=== PATIENT | female | born 2000 | race Hispanic/Latino ===

== ENCOUNTER 2023-12-16 15:14 | Observation (INO) | payer BC ==
[~2023-12-16] VITALS: Ht 162.6 cm; Wt 56.2 kg
[2023-12-16 15:56] LABS: BILIRUBIN,URINE NEGATIVE (NEGATIVE); COLOR,URINE LIGHT-YELLOW (YELLOW); GLUCOSE, URINE (UA) NEGATIVE (NEGATIVE); KETONES,URINE NEGATIVE (NEGATIVE); LEUKOCYTE ESTERASE ,URINE NEGATIVE Leu/uL (NEGATIVE); NITRATE,URINE NEGATIVE (NEGATIVE); OCCULT BLOOD,URINE NEGATIVE (NEGATIVE); PROTEIN,URINE NEGATIVE (NEGATIVE); UROBILINOGEN,URINE 0.2 mg/dL (0.2-1.0)
[2023-12-16 15:58] LABS: ADD UA MICROSCOPIC YES; APPEARANCE,URINE HAZY (CLEAR)
--- NOTE | 2023-12-16 15:59 | ERN ---
General Chief Complaint: Abdominal Pain Stated Complaint: ABD PAIN Time Seen by MD: 15:19 Time Seen by Midlevel: 15:19 Source: patient History of Present Illness Initial Comments 23-year-old female presents to the ED for evaluation of midepigastric abdominal pain onset 2 days ago. Patient reports nausea, but denies any vomiting, diarrhea or any other associated symptoms. Allergies: Coded Allergies: Penicillins (Unverified Allergy, Unknown, 12/16/23) Home Meds Active Scripts Ferrous Sulfate (Feosol) 325 Mg (65 Mg Iron) Tablet, 1 TAB PO DAILY for 30 Days, #30 TAB 1 Refill Prov:SHARAD LAND MD 12/17/23 Past Medical History Past Medical History: Anemia, Depression Past Surgical History: None Female( History) LMP: Dec 02, 2023 : 0 ROS Dictation Constitutional: Negative for fever,chills, and weight loss Eyes: Negative for injury, pain,redness, and discharge ENT: Negative for injury,pain or swelling Cardiovascular: Negative for chest pain, palpitations, and edema Respiratory: Negative for shortness of breath, cough, and wheezing, Abdomen/GI: Positive for abdominal pain, nausea negative for vomiting, diarrhea, and constipation Back: Negative for injury and pain : Negative for injury, bleeding and discharge MS/Extremity: Negative for injury and deformity Skin: Negative for rash, and discoloration Neuro: Negative for headache, weakness, numbness, tingling, and seizure Psych: Negative for suicide ideation, homicidal ideation, and hallucinations Physical Exam Physical Exam Dictation General: awake, alert, NAD Head/Face: Normocephalic, atraumatic Eyes: PERRL, EOMI, vision at baseline ENT: oral cavity clear, TMs clear, no signs of infection Neck: Trachea midline, supple, no nuchal rigidity Cardiovascular: RRR, normal S1/S2, No MRGs, no JVD Respiratory: CTAB, no respiratory distress, No rales or wheezes Abdomen: Soft, moderate midepigastric abdominal tenderness, non-distended, normal bowel sounds, no guarding or rebound. Skin: Warm, dry, normal turgor, no rash MS/Extremity: Pulses equal, no cyanosis, neurovascular intact, FROM Neuro: COAx4, GCS 15, strength 5/5, CN 2-12 intact, normal cerebellar exam, normal gait, Psych: Normal behavior, mood, and affect normal Results Laboratory and Microbiology Lab and Micro Result Laboratory Tests Test 12/16/23 15:50 12/16/23 15:52 Urine Color LIGHT-YELLOW (YELLOW) Urine Appearance HAZY (CLEAR) Urine pH 8.0 (5.0-8.0) Urine Specific [place] 1.014 (1.001-1.031) Urine Protein NEGATIVE mg/dL (NEGATIVE) Urine Glucose (UA) NEGATIVE mg/dL (NEGATIVE) Urine Ketones NEGATIVE mg/dL (NEGATIVE) Urine Occult Blood NEGATIVE (NEGATIVE) Urine Nitrate NEGATIVE (NEGATIVE) Urine Bilirubin NEGATIVE mg/dL (NEGATIVE) Urine Urobilinogen 0.2 mg/dL (0.2-1.0) Urine Leukocyte Esterase NEGATIVE Aylin/uL Urine RBC 0-1 /HPF (0-1) Urine WBC 0-1 /HPF (0-1) Urine Squamous Epithelial Cells MANY /HPF (0-2) Urine Bacteria FEW /HPF (None Seen) White Blood Count 6.3 K/uL (4.8-10.8) Red Blood Count 4.57 MIL/uL (4.00-5.50) Hemoglobin 9.1 g/dL (12.0-16.0) L Hematocrit 29.7 % (36-48) L Mean Corpuscular Volume 65.0 fL (80-100) L Mean Corpuscular Hemoglobin 19.9 pg (27.0-33.0) L Mean Corpuscular Hemoglobin Concent 30.6 g/dL (32.0-36.0) L Red Cell Distribution Width 16.8 % (11.0-15.5) H Platelet Count 403 K/uL (130-400) H Mean Platelet Volume 9.6 fL (7.5-10.5) Immature Granulocyte % (Auto) 0.3 % (0-1) Neutrophils (%) (Auto) 63.2 % (40.0-77.0) Lymphocytes (%) (Auto) 28.7 % (21.0-51.0) Monocytes (%) (Auto) 6.7 % (3.0-13.0) Eosinophils (%) (Auto) 0.6 % (0.0-8.0) Basophils (%) (Auto) 0.5 % (0.0-5.0) Neutrophils # (Auto) 4.0 K/uL (1.8-7.7) Lymphocytes # (Auto) 1.8 K/uL (1.0-4.8) Monocytes # (Auto) 0.4 K/uL (0.1-1.0) Eosinophils # (Auto) 0.04 K/uL (0.00-0.70) Basophils # (Auto) 0.03 K/uL (0.00-0.20) Absolute Immature Granulocyte (auto 0.02 K/uL (0-1) Nucleated Red Blood Cells 0.0 % (0.0-0.19) Red Blood Cell Morphology See comments Sodium Level 139 mmol/L (136-145) Potassium Level 3.7 mmol/L (3.5-5.1) Chloride Level 102 mmol/L (101-111) Carbon Dioxide Level 29 mmol/L (21-32) Blood Urea Nitrogen 11 mg/dL (7-18) Creatinine 0.6 mg/dL (0.5-1.0) Glomerular Filtration Rate Calc 131 mL/min (>90) Random Glucose 93 mg/dL (70-105) Total Calcium 9.7 mg/dL (8.5-10.1) Total Bilirubin 0.4 mg/dL (0.2-1.0) Direct Bilirubin 0.1 mg/dL (0.0-0.3) Aspartate Amino Transf (AST/SGOT) 13 U/L (10-37) Alanine Aminotransferase (ALT/SGPT) 19 U/L (12-78) Alkaline Phosphatase 79 U/L (50-136) Total Protein 7.9 g/dL (6.0-8.3) Albumin 4.0 g/dL (3.5-5.0) Lipase 46 U/L (16-77) Serum Test, Qualitative NEGATIVE (NEGATIVE) Labs Reviewed?: Yes MDM MDM: Differential diagnosis: Pancreatitis, gastritis, gastroenteritis Rationale: Tests considered and ordered secondary to shared decision making include: Previous outside records reviewed: Old ER visits. Risk of complication and/or morbidity or mortality of patient management: None Medications-Per medication reconciliation Need for hospitalization: Patient does meet criteria for hospitalization. Need for emergency major/minor surgery: No There are no social concerns with this patient. Prescription drug management Prescriptions will include symptomatic care Patient's prior external medical records from other ER visits were reviewed by me as indicated. Prior testing and results from previous visits were reviewed. Prior tests were taken into account with medical decision making and resource utilization, independent historian/historians were used to obtain complete medical history. I independently interpreted the test that were performed, results were reviewed by me and considered findings on radiology if ordered. Medical management and examination interpretation discussions were had by me with other qualified healthcare professionals as indicated for the patient's care. ED Course Orders Procedure Category Date Status Time Cbc With Differential LAB 12/16/23 Complete 15:29 Basic Metabolic Panel LAB 12/16/23 Complete 15:29 Hepatic Function Panel LAB 12/16/23 Complete 15:29 Lipase LAB 12/16/23 Complete 15:29 Urinalysis Profile LAB 12/16/23 Complete 15:29 Testing, LAB 12/16/23 Complete Serum Hcg 15:29 Ondansetron Odt 4mg PHA 12/16/23 Complete Tab (Zofran 4mg Odt) 15:30 Ondansetron 4mg Inj PHA 12/16/23 Complete (Zofran 4mg Inj) 17:30 Famotidine 20mg Vial PHA 12/16/23 Complete (Pepcid 20mg Vial) 17:30 Lidocaine Hcl 2% PHA 12/16/23 Complete Viscous (Lidocaine Hcl 17:30 Mag/Alum/Simeth 30ml PHA 12/16/23 Complete (Maalox Plus 30ml) 17:30 Ondansetron Odt 4mg PHA 12/16/23 Complete Tab (Zofran 4mg Odt) 18:00 Famotidine 20mg Tab PHA 12/16/23 Complete (Pepcid 20mg Tab) 18:00 Morphine 2mg Syg PHA 12/16/23 Complete (Morphine 2mg Syg) 19:00 Ct Abdomen/Pelvis CT 12/16/23 Resulted W/Contrast 18:38 Iohexol (Omnipaque) PHA 12/16/23 Complete 18:46 Ketorolac PHA 12/16/23 Complete Tromethamine 15mg/Ml 20:00 0.9%Nacl 1000ml (Ns PHA 12/16/23 Complete 1000ml) 20:00 General Surgery CONPHYSVC 12/16/23 Transmitted Consult 20:34 Edm Admit Bridge Order ADM 12/16/23 Transmitted 21:00 Hydromorphone 0.5mg PHA 12/16/23 Complete Syg (Dilaudid 0.5mg 22:30 Vital Signs Date Time Temp Pulse Resp B/P (MAP) Pulse Ox O2 Delivery O2 Flow Rate FiO2 12/16/23 20:30 98.2 91 18 115/81 98 Room Air* 0 21 12/16/23 15:42 98.4 104 18 116/68 100 Room Air* 0 21 12/16/23 15:18 98.4 104 18 116/[address] [facility] [address] [place] [id number] IMAGING REPORT Signed PATIENT: GUADALUPE VARELA MR#: [id number] : 2000 SEX: F AGE: 23 LOCATION: [facility] ORDER 38 STATUS: REG ER REPORT#: [id number] SERVICE 37 REASON: mid epigastric abd pain ORDERING PHYSICIAN: ALPA VELAZCO PROCEDURE: ABD PEL W - CT ABDOMEN/PELVIS W/CONTRAST CT ABDOMEN/PELVIS W/CONTRAST HISTORY: Pain COMPARISON: None TECHNIQUE: Multiple sequential axial images of the abdomen and pelvis were obtained from the dome of the diaphragm through symphysis pubis. Patient was not given contrast through intravenous route. Oral contrast was not given. FINDINGS: No pleural effusion is seen bilaterally. There is no evidence of parenchymal disease or pulmonary nodule of the visualized lower lungs. Degenerative changes of the thoracolumbar spine are present. The heart is not enlarged. Liver measures 16 cm. Gastric distention is seen. Mild small bowel dilatation is seen may be related to ileus with early bowel obstruction not excluded. The liver, spleen, adrenal glands and pancreas are unremarkable. There is no evidence of hydronephrosis bilaterally. No evidence of renal stone is seen. Fecal material is seen in the colon. There are normal size retroperitoneal and mesenteric lymph nodes. No ascites is seen. Appendix is not well seen limiting evaluation. Clinical correlation is recommended. There are bilateral ovarian follicles versus cysts. Pelvic sidewalls are symmetric bilaterally. Bladder is well distended without wall thickening. IMPRESSION: 1. Gastric distention is seen. Mild small bowel dilatation is seen may be related to ileus with early bowel obstruction not excluded. Large amount of fecal material is seen in the colon. CT was performed with one or more following dose reduction techniques: automated exposure control, adjustment of the mA and kv according to patient's size, or use of a iterative reconstruction technique. DICTATED BY: OVIDIO VELASQUEZ MD DATE: 12/16/231913 ELECTRONICALLY SIGNED BY: OVIDIO VELASQUEZ MD DATE: 12/16/231917 DX & DISP Disposition: Inpatient Departure Impression: Primary Impression: Chronic anemia Additional Impression: Ileus Condition: Stable Scripts Ferrous Sulfate (Feosol) 325 Mg (65 Mg Iron) Tablet 1 TAB PO DAILY for 30 Days, #30 TAB 1 Refill Prov: SHARAD LAND MD 12/17/23 Time of Disposition: 18:06 I have reviewed, & agreed with my scribe's, documentation. (Entered by Patricio Shah, acting as a scribe for FAIZAN Velazco) I have reviewed the case, and I agree with, Diagnosis and Plan I performed the substantive portion of the visit. I have reviewed and personally made and approve the management plan that is documented in the note by myself or the YOUSIF. I acknowledge for responsibility for the patient's management plan. I personally scribed for ALPA VELAZCO ([email or web address]) on 12/16/23 at 15:59. Electronically submitted by Patricio Shah ([email or web address]). ALPA VELAZCO Dec 16, 2023 15:59
[2023-12-16] MEDS: ondanSETRON ODT 4MG TAB SL ONE ×2 (16:02→18:05)
[2023-12-16 16:15] LABS: BACTERIA,URINE FEW /HPF (None Seen); MUCUS,URINE RARE LPF (None Seen); RBC,URINE 0-1 /HPF (0-1); SQUAMOUS EPITHELIAL CELL,UR MANY /HPF (0-2); WBC,URINE 0-1 /HPF (0-1)
[2023-12-16 16:19] LABS: BASOPHILS # (AUTO) 0.03 K/uL (0.00-0.20); BASOPHILS % (AUTO) 0.5 % (0.0-5.0); EOSINOPHILS # (AUTO) 0.04 K/uL (0.00-0.70); EOSINOPHILS % (AUTO) 0.6 % (0.0-8.0); HEMATOCRIT 29.7 % (36-48); IMMATURE GRANULOCYTE ABSOLUTE 0.02 K/uL (0-1); LYMPHOCYTES # (AUTO) 1.8 K/uL (1.0-4.8); LYMPHOCYTES % (AUTO) 28.7 % (21.0-51.0); MEAN CORPUSCULAR HEMOGLOBIN 19.9 pg (27.0-33.0); MEAN CORPUSCULAR HGB CONC 30.6 g/dL (32.0-36.0); MONOCYTES # (AUTO) 0.4 K/uL (0.1-1.0); MONOCYTES % (AUTO) 6.7 % (3.0-13.0); NEUTROPHILS % (AUTO) 63.2 % (40.0-77.0); PLATELET COUNT (AUTO) 403 K/uL (130-400); RED BLOOD CELL COUNT(AUTO) 4.57 MIL/uL (4.00-5.50); RED CELL DISTRIBUTION WIDTH 16.8 % (11.0-15.5); WHITE BLOOD COUNT (AUTO) 6.3 K/uL (4.8-10.8)
[2023-12-16 16:34] LABS: CREATININE 0.6 mg/dL (0.5-1.0); POTASSIUM 3.7 mmol/L (3.5-5.1)
[2023-12-16 16:39] LABS: BILIRUBIN,DIRECT 0.1 mg/dL (0.0-0.3); BILIRUBIN,TOTAL 0.4 mg/dL (0.2-1.0); TOTAL PROTEIN, SERUM 7.9 g/dL (6.0-8.3)
[2023-12-16] MEDS ORDERED: ondanSETRON 4MG INJ IVP ONE (17:30)
[2023-12-16] MEDS ORDERED: FAMOTIDINE 20MG VIAL IV ONE (17:30)
[2023-12-16] MEDS: FAMOTIDINE 20MG TAB PO ONE (18:05)
[2023-12-16] MEDS: MAG/ALUM/SIMETH 30 ML UDCUP PO ONE (18:05)
[2023-12-16] MEDS: LIDOCAINE HCL 2% VISCOUS 15 ML UDCUP PO ONE (18:05)
[2023-12-16] MEDS: morPHINE 2 MG SYG IVP ONE (18:42)
[2023-12-16] MEDS ORDERED: IOHEXOL-350 75 ML VIAL IV ONE (18:46)
--- NOTE | 2023-12-16 19:18 | HMCIMG ---
CT ABDOMEN/PELVIS W/CONTRAST HISTORY: Pain COMPARISON: None TECHNIQUE: Multiple sequential axial images of the abdomen and pelvis were obtained from the dome of the diaphragm through symphysis pubis. Patient was not given contrast through intravenous route. Oral contrast was not given. FINDINGS: No pleural effusion is seen bilaterally. There is no evidence of parenchymal disease or pulmonary nodule of the visualized lower lungs. Degenerative changes of the thoracolumbar spine are present. The heart is not enlarged. Liver measures 16 cm. Gastric distention is seen. Mild small bowel dilatation is seen may be related to ileus with early bowel obstruction not excluded. The liver, spleen, adrenal glands and pancreas are unremarkable. There is no evidence of hydronephrosis bilaterally. No evidence of renal stone is seen. Fecal material is seen in the colon. There are normal size retroperitoneal and mesenteric lymph nodes. No ascites is seen. Appendix is not well seen limiting evaluation. Clinical correlation is recommended. There are bilateral ovarian follicles versus cysts. Pelvic sidewalls are symmetric bilaterally. Bladder is well distended without wall thickening. IMPRESSION: 1. Gastric distention is seen. Mild small bowel dilatation is seen may be related to ileus with early bowel obstruction not excluded. Large amount of fecal material is seen in the colon. CT was performed with one or more following dose reduction techniques: automated exposure control, adjustment of the mA and kv according to patient's size, or use of a iterative reconstruction technique.
--- NOTE | 2023-12-16 19:45 | NUR ---
ASSUMED PT CARE AT THIS TIME
[2023-12-16] MEDS: 0.9%NACL 1000ML 1,000 ML IV ONE (20:11)
[2023-12-16] MEDS: ketOROlac 15MG/ML VIAL (15MG/ML) IV ONE (20:11)
--- NOTE | 2023-12-16 22:34 | HP ---
[facility] HISTORY AND PHYSICAL Date of Service: Dec 16, 2023 Time of Service: 22:21 PCP: Self-referral HISTORY OF PRESENT ILLNESS: This is a 23-year-old female with past medical history of anemia depression and asthma who presents to the ED for four complaints of mid epigastric abdominal pain started two days ago associated with nausea and chills but no vomiting.Patient states she did not eat anything unusual from her diet and this is the first time she has experienced this kind of pain she said.Patient reports her last bowel movement was today and it is normal. Patient states her last menstrual period was last week. Seen and examined patient in the ER awake,alert and appears uncomfortable.Patient denies fever,vomiting,diarrhea,chest pain,palpitation and shortness of breath . Latest vital signs temperature 98.2, heart rate 91, blood pressure 115/81 saturation 98% on room air. Labs: Hemoglobin 9.1, hematocrit 29 platelet count 403. Chemistry normal serum negative. CT abdomen and pelvis with contrast result revealed gastric distention is seen. Mild small bowel dilatation is seen may be related to ileus with early bowel obstruction not excluded. Large amount of fecal material is seen in the colon. While in the ER patient received 1 L NS bolus, Toradol 15 mg IV, morphine 2 mg IV famotidine 20 mg p.o., Zofran 4 mg sublingual, Maalox 30 mL, lidocaine 10 mL p.o., Zofran 4 mg IV. We will admit patient for further medical management. REVIEW OF SYSTEMS CONSTITUTIONAL: Positive chills Denies fevers or night sweats. No unintentional weight loss reported. NEUROLOGICAL: Denies headache, amaurosis fugax, motor weakness, sensory deficit, vertigo/spinning sensation, gait abnormalities, or tremors. ENT: No hearing loss, otalgia, otorrhea, rhinitis, rhinorrhea, hoarseness, or sore throat. CARDIOVASCULAR: Denies any exertional angina, dyspnea on exertion, orthopnea, paroxysmal nocturnal dyspnea, palpitations, life-threatening arrhythmias, claudication. PULMONARY: Denies any shortness of breath, cough, phlegm/sputum, hemoptysis, pleuritic chest pain. SLEEP: Denies morning headaches, daytime somnolence or napping. Denies difficulty falling asleep, staying asleep, waking from sleep. Denies knowledge of snoring. GASTROINTESTINAL: Mid epigastric abdominal pain and nausea Denies any type of dysphagia to either liquids or solids. Denies, vomiting, pyrosis, early satiety,diarrhea, constipation, or changes in stool consistency or caliber. Denies coffee-ground emesis, hematemesis, hematochezia, or melanotic stools. GENITOURINARY: Denies frequency, urgency, nocturia, hematuria or incontinence (Storage/Irritative symptoms.) Low urinary stream, straining to void, urinary intermittency or hesitancy, splitting of the voiding stream, terminal dribbling. ENDOCRINOLOGIC: Denies polyuria, polydipsia, polyphagia or heat/cold intolerances. HEMATOLOGIC: Denies thrombophilia/previous clots, or coagulopathy/bleeding disorders. ONCOLOGIC: Denies personal history of malignancy. DERMATOLOGIC: Denies rashes or pruritus. PSYCHIATRIC: Denies any suicidal or homicidal ideation. Denies hallucinations. PAST MEDICAL HISTORY: [ Depression, anemia and asthma ] PAST SURGICAL HISTORY: [Patient denies ] PAST SOCIAL HISTORY: [ Patient lives with parents. Patient denies alcohol tobacco and recreational drug use ] FAMILY HISTORY: [ Noncontributory ] Coded Allergies: Penicillins (Unverified Allergy, Unknown, 12/16/23) PHYSICAL EXAM GENERAL APPEARANCE: The patient is awake, alert, and oriented, in no acute cardiopulmonary distress. NEUROLOGICAL: Cranial nerves II-XII grossly intact. Motor is 5/5 in bilateral upper and lower extremities proximal to distal. No sensory deficits. HEENT: Face is symmetric. Pupils are equal and reactive. Extraocular movements are intact. NECK: Supple. No JVD. No thyromegaly. No submental, submandibular, pre- /postauricular, occipital or supraclavicular lymphadenopathy. CHEST: Normal chest expansion. No Telemetry. LUNGS: Absence of any rales, rhonchi or any wheezing. CARDIOVASCULAR: Regular. S1 and S2 normal. No appreciable rubs, murmurs or gallops. ABDOMEN: Abdominal tenderness on palpation around mid epigastric area Soft and nondistended. There is no rebound, voluntary guarding, or rigidity. : Deferred. No [place]. EXTREMITIES: Non-edematous and not cyanotic. No clubbing. Good capillary refill. SKIN: No skin breakdown. Vital Sign (Last 24 Hours) 12/16/23 20:30 Temp 98.2 Pulse 91 Resp 18 B/P (MAP) 115/81 Pulse Ox 98 O2 Delivery Room Air* O2 Flow Rate 0 FiO2 21 LABS: Laboratory: Test 12/16/23 15:52 12/16/23 15:50 Range/Units White Blood Count 6.3 4.8-10.8 K/uL Red Blood Count 4.57 4.00-5.50 MIL/uL Hemoglobin 9.1 L 12.0-16.0 g/dL Hematocrit 29.7 L 36-48 % Mean Corpuscular Volume 65.0 L 80-100 fL Mean Corpuscular Hemoglobin 19.9 L 27.0-33.0 pg Mean Corpuscular Hemoglobin Concent 30.6 L 32.0-36.0 g/dL Red Cell Distribution Width 16.8 H 11.0-15.5 % Platelet Count 403 H 130-400 K/uL Mean Platelet Volume 9.6 7.5-10.5 fL Immature Granulocyte % (Auto) 0.3 0-1 % Neutrophils (%) (Auto) 63.2 40.0-77.0 % Lymphocytes (%) (Auto) 28.7 21.0-51.0 % Monocytes (%) (Auto) 6.7 3.0-13.0 % Eosinophils (%) (Auto) 0.6 0.0-8.0 % Basophils (%) (Auto) 0.5 0.0-5.0 % Neutrophils # (Auto) 4.0 1.8-7.7 K/uL Lymphocytes # (Auto) 1.8 1.0-4.8 K/uL Monocytes # (Auto) 0.4 0.1-1.0 K/uL Eosinophils # (Auto) 0.04 0.00-0.70 K/uL Basophils # (Auto) 0.03 0.00-0.20 K/uL Absolute Immature Granulocyte (auto 0.02 0-1 K/uL Nucleated Red Blood Cells 0.0 0.0-0.19 % Red Blood Cell Morphology See comments Sodium Level 139 136-145 mmol/L Potassium Level 3.7 3.5-5.1 mmol/L Chloride Level 102 101-111 mmol/L Carbon Dioxide Level 29 21-32 mmol/L Blood Urea Nitrogen 11 7-18 mg/dL Creatinine 0.6 0.5-1.0 mg/dL Glomerular Filtration Rate Calc 131 >90 mL/min Random Glucose 93 70-105 mg/dL Total Calcium 9.7 8.5-10.1 mg/dL Total Bilirubin 0.4 0.2-1.0 mg/dL Direct Bilirubin 0.1 0.0-0.3 mg/dL Aspartate Amino Transf (AST/SGOT) 13 10-37 U/L Alanine Aminotransferase (ALT/SGPT) 19 12-78 U/L Alkaline Phosphatase 79 50-136 U/L Total Protein 7.9 6.0-8.3 g/dL Albumin 4.0 3.5-5.0 g/dL Lipase 46 16-77 U/L Serum Test, Qualitative NEGATIVE NEGATIVE Urine Color LIGHT-YELLOW YELLOW Urine Appearance HAZY CLEAR Urine pH 8.0 5.0-8.0 Urine Specific [place] 1.014 1.001-1.031 Urine Protein NEGATIVE NEGATIVE mg/dL Urine Glucose (UA) NEGATIVE NEGATIVE mg/dL Urine Ketones NEGATIVE NEGATIVE mg/dL Urine Occult Blood NEGATIVE NEGATIVE Urine Nitrate NEGATIVE NEGATIVE Urine Bilirubin NEGATIVE NEGATIVE mg/dL Urine Urobilinogen 0.2 0.2-1.0 mg/dL Urine Leukocyte Esterase NEGATIVE NEGATIVE Aylin/uL Urine RBC 0-1 0-1 /HPF Urine WBC 0-1 0-1 /HPF Urine Squamous Epithelial Cells MANY 0-2 /HPF Urine Bacteria FEW None Seen /HPF DIAGNOSTICS / RADIOLOGY: [ ] ASSESSMENT: Suspected small bowel ileus with early bowel obstruction POA Chronic anemia POA Acute thrombocytosis POA PLAN: We will admit patient in medical surgical We will keep patient nothing by mouth We will start NS @ 100 ml / hr and re evaluate We will start on Famotidine 20 mg IV bid for GI prophylaxis We will replace electrolytes as needed per protocol We will add prn medication for fever,pain,nausea and vomiting We will reconcile home meds once medlist available We will repeat CT scan of the abdomen in a.m. We will request labs in am Further orders to follow depending on above results Case discussed with attending physician and came up with above treatment and plan of care. ADVANCED CARE PLANNING 1. Which of the following were discussed? Hospice Care - No Therapeutic options - Yes Advance Directives - No Other discussions - 2. Discussed with who? Patient 3. Voluntary nature of this service was explained to the patient? Yes 4. Amount of time spent - ___ 18 minutes ____ 5. Reviewed by Physician? (if this service was performed by NPP) Yes Patient seen and examined by me. Agree with note by YIELD LOSS INSPECTOR SEE ADDITIONAL ORDERS PER CHART DISCUSSED WITH NURSING STAFF ANGELLA MONGE TRADE SALES ASSISTANT Dec 16, 2023 22:34
[2023-12-16] MEDS: hydroMORPHone 0.5 MG SYG (0.5MG/0.5ML) IVP PRN (22:38)
[2023-12-16] MEDS ORDERED: PoTASSium chloRIDE 20MEQ/100ML 100 ML IV PRN (23:00)
[2023-12-16] MEDS: 0.9%NACL 1000ML 1,000 ML IV SCH (23:39)
--- NOTE | 2023-12-16 23:40 | NUR ---
REPORT GIVEN TO NURSE TREVINO
[2023-12-16 23:55] VITALS: BP 113/66; PULSE 82; RESP 16; TEMP 97.9; O2SAT 99
[2023-12-17] VITALS (7 sets, daily range): BP systolic 91–109; BP diastolic 48–65; PULSE 72–88; RESP 16–18; TEMP 97.8–99.2; O2SAT 99
[2023-12-17] MEDS: ondanSETRON 4MG INJ IV PRN (00:10)
[2023-12-17 04:53] LABS: BASOPHILS # (AUTO) 0.02 K/uL (0.00-0.20); BASOPHILS % (AUTO) 0.3 % (0.0-5.0); EOSINOPHILS # (AUTO) 0.06 K/uL (0.00-0.70); EOSINOPHILS % (AUTO) 0.8 % (0.0-8.0); HEMATOCRIT 25.9 % (36-48); IMMATURE GRANULOCYTE ABSOLUTE 0.02 K/uL (0-1); LYMPHOCYTES # (AUTO) 2.1 K/uL (1.0-4.8); LYMPHOCYTES % (AUTO) 29.6 % (21.0-51.0); MEAN CORPUSCULAR VOLUME 65.6 fL (80-100); MONOCYTES # (AUTO) 0.6 K/uL (0.1-1.0); MONOCYTES % (AUTO) 8.3 % (3.0-13.0); NEUTROPHILS # (AUTO) 4.3 K/uL (1.8-7.7); NEUTROPHILS % (AUTO) 60.7 % (40.0-77.0); NUCLEATED RED BLOOD CELLS 0.3 % (0.0-0.19); PLATELET COUNT (AUTO) 299 K/uL (130-400); RED BLOOD CELL COUNT(AUTO) 3.95 MIL/uL (4.00-5.50); RED CELL DISTRIBUTION WIDTH 16.6 % (11.0-15.5); WHITE BLOOD COUNT (AUTO) 7.1 K/uL (4.8-10.8)
[2023-12-17 05:15] LABS: ALBUMIN 3.1 g/dL (3.5-5.0); BILIRUBIN,TOTAL 0.3 mg/dL (0.2-1.0); CREATININE 0.7 mg/dL (0.5-1.0); MAGNESIUM 1.9 mg/dL (1.80-2.40); POTASSIUM 4.3 mmol/L (3.5-5.1); TOTAL PROTEIN, SERUM 6.3 g/dL (6.0-8.3)
[2023-12-17] MEDS: MAGNESIUM 2GM PREMIX 50ML 50 ML IV PRN (06:43)
[2023-12-17] MEDS: FAMOTIDINE 20MG VIAL IV SCH (08:27)
--- NOTE | 2023-12-17 09:28 | NUR ---
Dr. Young notified of new consult.
[2023-12-17] MEDS ORDERED: IOHEXOL-350 75 ML VIAL IV ONE (10:17)
--- NOTE | 2023-12-17 11:04 | HMCIMG ---
Exam Type: CT ABDOMEN/PELVIS W/CONTRAST Clinical Information: abdominal pain eval for ileus Comparison: None Contrast: 100 cc's Isovue 370 IV, no complications or adverse reactions CT Dose Index (CTDI): 31.60 mGy Dose Length Product (DLP): 1740.80 total mGy-cm Findings: No evidence of nephro or ureterolithiasis is found. No hydronephrosis or ureteral dilatation is seen. The lung bases are clear. The stomach is unremarkable. It shows no wall thickening. No gross ulceration is seen. It is not overly distended. There are no surrounding inflammatory changes. No wall lesions are identified to suggest cancer. The spleen is unremarkable. It is not enlarged. The pancreas shows normal anatomy. It is not fatty replaced. It shows no lesions. The pancreatic duct is not dilated. The gallbladder is unremarkable. It shows no cholelithiasis. The gallbladder wall is normal in thickness. There is no pericholecystic fluid. The is no acute or chronic inflammation noted. The adrenal glands are unremarkable. There is no enlargement. No lesions are noted. The liver is unremarkable. It shows no focal masses. The appendix is unremarkable. It shows no evidence of inflammation. No appendicolith is seen. The small bowel is unremarkable. There is no evidence of dilatation to suggest obstruction. No evidence of adynamic ileus is seen. There is no small bowel wall thickening to suggest enteritis. The colon is unremarkable. The urinary bladder is unremarkable. There is no wall thickening to suggest tumor or inflammation. There are no intraluminal calculi. There are no diverticula. There is no evidence of chronic bladder outlet obstruction. There is no evidence of urinary bladder distention to suggest urinary retention. The other pelvic structures are unremarkable. The bony and vascular structures are unremarkable for the patient's age. IMPRESSION: NEGATIVE CT SCAN OF THE ABDOMEN AND PELVIS WITH ORAL AND IV CONTRAST. This study was performed using dose reduction techniques to include automated exposure control and/or adjustment of the mA and/or kV according to patient size.
[2023-12-17] MEDS: MAGNESIUM CITRATE 296 ML SOLUTION PO STA (11:23)
--- NOTE | 2023-12-17 11:50 | DS ---
Discharge Summary Hospital Course Summary: The patient admitted to the hospital on December 16, 2023 with the following history of the present illness: This is a 23-year-old female with past medical history of anemia depression and asthma who presented to the ED for complaints of mid epigastric abdominal pain started two days ago associated with nausea and chills but no vomiting. Patient stated she did not eat anything unusual from her diet and this is the first time she has experienced this kind of pain. Seen and examined patient in the ER awake,alert and appears uncomfortable.Patient denies fever,vomiting,diarrhea,chest pain,palpitation and shortness of breath . In the ER Latest vital signs temperature 98.2, heart rate 91, blood pressure 115/81 saturation 98% on room air. In the ER Labs: Hemoglobin 9.1, hematocrit 29 platelet count 403. Chemistry normal serum negative. CT abdomen and pelvis with contrast result revealed gastric distention is seen. Mild small bowel dilatation is seen may be related to ileus with early bowel obstruction not excluded. Large amount of fecal material is seen in the colon. While in the ER patient received 1 L NS bolus, Toradol 15 mg IV, morphine 2 mg IV famotidine 20 mg p.o., Zofran 4 mg sublingual, Maalox 30 mL, lidocaine 10 mL p.o., Zofran 4 mg IV. The patient was admitted to the medical floor, kept NPO, supportive care with IV fluids. Surgical consultation requested, magnesium citrate given, if patient has a bowel movement okay for the patient to be discharged home. During my visit today patient is alert oriented x3, hemodynamically stable, no chest pain, shortness shortness for breath, no nausea, no vomiting, no abdominal pain, passing small amount of gas. Assessment/Plan: Final diagnosis Constipation, POA Chronic anemia POA Acute thrombocytosis POA Discharge Instructions: The patient to follow with primary care physician as an outpatient and to return to the hospital if his condition changes. Patient agreed with plan and understood the information provided. Time spent arranging discharge: 31-60 minutes SHARAD LAND MD Dec 17, 2023 11:50
--- NOTE | 2023-12-17 11:50 | CONS ---
GENERAL SURGERY CONSULTATION NOTE DATE OF CONSULTATION: Dec 17, 2023 TIME OF CONSULTATION: 11:47 CONSULTING SERVICE: Siomara Moon MD REQUESTING PHYSICAIN: [ ] REASON FOR CONSULTATION: [ ] Abdominal pain SBO HISTORY OF PRESENT ILLNESS: [ ] 23-year-old lady who presented with abdominal pain Patient started three days ago started with nausea but no vomiting Pain is colicky No fever PAST MEDICAL HISTORY: [ ] Non PAST SURGICAL HISTORY: [ ] Non FAMILY HISTORY: [ ] Positive for hypertension and diabetes SOCIAL HISTORY: [ ] No smoking No alcohol Current Medications Medications (Trade) Dose Ordered Sig/Jemma Route Start Time Stop Time Status Last Admin Dose Admin Famotidine (Pepcid 20mg Vial) 20 mg BID IV 12/17/23 09:00 01/16/24 08:59 12/17/23 08:27 20 MG Magnesium Citrate (Magnesium Citrate) 296 ml ONCE STAT PO 12/17/23 11:09 12/17/23 11:19 DC 12/17/23 11:23 296 ML Sodium Chloride 1,000 ml @ 100 mls/hr Q10H IV 12/16/23 23:00 01/15/24 22:59 12/16/23 23:39 100 MLS/HR Allergies: Coded Allergies: Penicillins (Unverified Allergy, Unknown, 12/16/23) REVIEW OF SYSTEMS: ASSOCIATE DEAN: [Denies headaches or blurring of vision.] RESP: [No cough, chest pain or SOB.] CVS: [No palpitaions.] GI: [abdominal pain with nausea no vomiting no diarrhea there is constipation LE: [No dysuria or hematuria.] Musculoskeletal: [No swelling or joint pain.] BACK: [No pain or swelling.] All other systems are reviewed and essentially negative pertinent positives in HPI. PHYSICAL EXAMINATION: GENERAL: [Patient is lying comfortably in bed, not in any obvious distress.] HEAD: [Normal with no signs of head trauma.] EYES: [Not pale not jaundiced afebrile to touch.] ENT: [ Normal.] NECK: [Supple,no tenderness,no lymphadenopathy,no masses,no thyromegaly ,no bruits, no JVD.] LUNGS: [Clear breath sounds bilaterally. No wheezes, rales, or rhonchi.] HEART: [Regular rate and rhythm. Normal S1 and S2, without murmurs, rub or gallop.] ABD: [Bowel sounds present,soft, nontender : [Normal, no suprapubic tenderness.] LYMPH: [No lymphadenopathy noted.] EXT: [ Warm soft, non tender.] SKIN: [ No rashes or lesions.] NEURO: [ Awake Alert and oriented x3.] Vital Signs (last 8hr) Date Time Temp Pulse Resp B/P (MAP) Pulse Ox O2 Delivery O2 Flow Rate FiO2 12/17/23 11:19 99.0 88 16 100/60 100 12/17/23 09:17 99 Room Air* 0 21 12/17/23 08:31 98.4 72 16 95/51 100 12/17/23 03:54 97.9 77 17 91/48 97 Room Air LABORATORY: [ ] Hematology Labs: Test 12/17/23 04:25 12/16/23 15:52 Range/Units White Blood Count 7.1 4.8-10.8 K/uL Red Blood Count 3.95 L 4.00-5.50 MIL/uL Hemoglobin 7.5 L 12.0-16.0 g/dL Hematocrit 25.9 L 36-48 % Mean Corpuscular Volume 65.6 L 80-100 fL Mean Corpuscular Hemoglobin 19.0 L 27.0-33.0 pg Mean Corpuscular Hemoglobin Concent 29.0 L 32.0-36.0 g/dL Red Cell Distribution Width 16.6 H 11.0-15.5 % Platelet Count 299 # 130-400 K/uL Mean Platelet Volume 9.6 7.5-10.5 fL Immature Granulocyte % (Auto) 0.3 0-1 % Neutrophils (%) (Auto) 60.7 40.0-77.0 % Lymphocytes (%) (Auto) 29.6 21.0-51.0 % Monocytes (%) (Auto) 8.3 3.0-13.0 % Eosinophils (%) (Auto) 0.8 0.0-8.0 % Basophils (%) (Auto) 0.3 0.0-5.0 % Neutrophils # (Auto) 4.3 1.8-7.7 K/uL Lymphocytes # (Auto) 2.1 1.0-4.8 K/uL Monocytes # (Auto) 0.6 0.1-1.0 K/uL Eosinophils # (Auto) 0.06 0.00-0.70 K/uL Basophils # (Auto) 0.02 0.00-0.20 K/uL Absolute Immature Granulocyte (auto 0.02 0-1 K/uL Nucleated Red Blood Cells 0.3 H 0.0-0.19 % Red Blood Cell Morphology See comments Chemistry Labs: Test 12/17/23 04:25 12/16/23 15:52 Range/Units Sodium Level 140 136-145 mmol/L Potassium Level 4.3 3.5-5.1 mmol/L Chloride Level 108 101-111 mmol/L Carbon Dioxide Level 27 21-32 mmol/L Blood Urea Nitrogen 8 7-18 mg/dL Creatinine 0.7 0.5-1.0 mg/dL Glomerular Filtration Rate Calc 126 >90 mL/min Random Glucose 92 70-105 mg/dL Total Calcium 8.7 8.5-10.1 mg/dL Magnesium Level 1.90 1.80-2.40 mg/dL Total Bilirubin 0.3 # 0.2-1.0 mg/dL Aspartate Amino Transf (AST/SGOT) 11 10-37 U/L Alanine Aminotransferase (ALT/SGPT) 16 12-78 U/L Alkaline Phosphatase 61 50-136 U/L Total Protein 6.3 # 6.0-8.3 g/dL Albumin 3.1 #L 3.5-5.0 g/dL Direct Bilirubin 0.1 0.0-0.3 mg/dL Lipase 46 16-77 U/L Serum Test, Qualitative NEGATIVE NEGATIVE DIAGNOSTICS / RADIOLOGY: [Copy/Paste Echos/Imaging Report here] ASSESSMENT: [] Abdominal pain Constipation PLAN: [] Rehydrate Mag citrate Trial of diet SIOMARA MOON MD Dec 17, 2023 11:50
[2023-12-17] MEDS ORDERED: FERR-63 PO (11:52)
[2023-12-17 12:09] LABS: HEMATOCRIT 31.4 % (36-48); MEAN CORPUSCULAR HEMOGLOBIN 19.5 pg (27.0-33.0); MEAN CORPUSCULAR HGB CONC 28.7 g/dL (32.0-36.0); RED BLOOD CELL COUNT(AUTO) 4.62 MIL/uL (4.00-5.50); RED CELL DISTRIBUTION WIDTH 16.6 % (11.0-15.5); WHITE BLOOD COUNT (AUTO) 5.6 K/uL (4.8-10.8)
[2023-12-17 12:40] LABS: % IRON SATURATION 3.6 % (22-44)
[2023-12-17] MEDS: MAGNESIUM CITRATE 296 ML SOLUTION PO PRN (16:06)
[2023-12-17] MEDS: BisaCODYL 10 MG SUPP.RECT RC ONE (17:20)
--- NOTE | 2023-12-17 18:55 | NUR ---
[employer] ADMINISTERED.
[2023-12-18 04:00] VITALS: BP 102/59; PULSE 75; RESP 16; TEMP 98.6
[2023-12-18 05:46] LABS: MEAN CORPUSCULAR HEMOGLOBIN 19.3 pg (27.0-33.0); MEAN CORPUSCULAR VOLUME 66.7 fL (80-100); RED BLOOD CELL COUNT(AUTO) 4.35 MIL/uL (4.00-5.50); RED CELL DISTRIBUTION WIDTH 16.5 % (11.0-15.5); WHITE BLOOD COUNT (AUTO) 5.7 K/uL (4.8-10.8)
[2023-12-18 06:11] LABS: ALBUMIN 3.5 g/dL (3.5-5.0); BILIRUBIN,TOTAL 0.4 mg/dL (0.2-1.0); CREATININE 0.7 mg/dL (0.5-1.0); MAGNESIUM 2.3 mg/dL (1.80-2.40); POTASSIUM 3.7 mmol/L (3.5-5.1); TOTAL PROTEIN, SERUM 7.1 g/dL (6.0-8.3)
[2023-12-18 08:00] VITALS: BP 99/52; PULSE 82; RESP 20; TEMP 98.2
[2023-12-18 09:00] VITALS: O2SAT 98
--- NOTE | 2023-12-18 09:30 | NUR ---
DISCHARGE PIV DC'D DISCHARGE INSTRUCTIONS PROVIDED PT. AWARE THAT A PRESCRIPTION WAS SENT FOR IRON TO THE PHARMACY PATIENT ADVISED TO USE OTC STOOL SOFTENER/LAXATIVE NEEDED FOR CONSTIPATION NO QUESTIONS PRIOR TO DISCHARGE
--- NOTE | 2023-12-18 10:41 | PN ---
GENERAL SURGERY PROGRESS NOTE DATE OF SERVICE: Dec 18, 2023 TIME OF SERVICE: 10:38 Has had bowel movement Normal pain PROBLEM LISTS: [ ] INTERVAL HISTORY: [ ] PHYSICAL EXAMINATION: GENERAL: [Patient is lying comfortably in bed, not in any obvious distress.] HEAD: [Normal with no signs of head trauma.] EYES: [Not pale not jaundiced afebrile to touch.] ENT: [ Normal.] NECK: [Supple,no tenderness,no lymphadenopathy,no masses,no thyromegaly ,no bruits, no JVD.] LUNGS: [Clear breath sounds bilaterally. No wheezes, rales, or rhonchi.] HEART: [Regular rate and rhythm. Normal S1 and S2, without murmurs, rub or gallop.] ABD: [Bowel sounds present,soft, nontender : [Normal, no suprapubic tenderness.] LYMPH: [No lymphadenopathy noted.] EXT: [ Warm soft, non tender.] SKIN: [ No rashes or lesions.] NEURO: [ Awake Alert and oriented x3.] LABORATORY: [ ] Hematology Labs: Test 12/18/23 05:22 12/17/23 04:25 12/16/23 15:52 Range/Units White Blood Count 5.7 4.8-10.8 K/uL Red Blood Count 4.35 4.00-5.50 MIL/uL Hemoglobin 8.4 L 12.0-16.0 g/dL Hematocrit 29.0 L 36-48 % Mean Corpuscular Volume 66.7 L 80-100 fL Mean Corpuscular Hemoglobin 19.3 L 27.0-33.0 pg Mean Corpuscular Hemoglobin Concent 29.0 L 32.0-36.0 g/dL Red Cell Distribution Width 16.5 H 11.0-15.5 % Platelet Count 323 130-400 K/uL Mean Platelet Volume 9.8 7.5-10.5 fL Nucleated Red Blood Cells 0.0 0.0-0.19 % Immature Granulocyte % (Auto) 0.3 0-1 % Neutrophils (%) (Auto) 60.7 40.0-77.0 % Lymphocytes (%) (Auto) 29.6 21.0-51.0 % Monocytes (%) (Auto) 8.3 3.0-13.0 % Eosinophils (%) (Auto) 0.8 0.0-8.0 % Basophils (%) (Auto) 0.3 0.0-5.0 % Neutrophils # (Auto) 4.3 1.8-7.7 K/uL Lymphocytes # (Auto) 2.1 1.0-4.8 K/uL Monocytes # (Auto) 0.6 0.1-1.0 K/uL Eosinophils # (Auto) 0.06 0.00-0.70 K/uL Basophils # (Auto) 0.02 0.00-0.20 K/uL Absolute Immature Granulocyte (auto 0.02 0-1 K/uL Red Blood Cell Morphology See comments Chemistry Labs: Test 12/18/23 05:22 12/17/23 12:05 12/16/23 15:52 Range/Units Sodium Level 139 136-145 mmol/L Potassium Level 3.7 3.5-5.1 mmol/L Chloride Level 103 101-111 mmol/L Carbon Dioxide Level 27 21-32 mmol/L Blood Urea Nitrogen 9 7-18 mg/dL Creatinine 0.7 0.5-1.0 mg/dL Glomerular Filtration Rate Calc 126 >90 mL/min Random Glucose 81 70-105 mg/dL Total Calcium 9.2 8.5-10.1 mg/dL Magnesium Level 2.30 1.80-2.40 mg/dL Total Bilirubin 0.4 0.2-1.0 mg/dL Aspartate Amino Transf (AST/SGOT) 19 10-37 U/L Alanine Aminotransferase (ALT/SGPT) 19 12-78 U/L Alkaline Phosphatase 66 50-136 U/L Total Protein 7.1 6.0-8.3 g/dL Albumin 3.5 3.5-5.0 g/dL Iron Level 17 L 50-170 mcg/dL Total Iron Binding Capacity 463 H 250-450 mcg/dL Percent Iron Saturation 3.6 L 22-44 % Direct Bilirubin 0.1 0.0-0.3 mg/dL Lipase 46 16-77 U/L Serum Test, Qualitative NEGATIVE NEGATIVE DIAGNOSTICS / RADIOLOGY: [Copy/Paste Echos/Imaging Report here] ASSESSMENT: [] Abdominal pain Constipation PLAN: [] Resolved june DC home SIOMARA PENN MD Dec 18, 2023 10:41
== END 2023-12-18 09:45 | disposition home or self-care (01) ==
LOC: EDH 15:14 → EDHIP 22:34 → INTOOBSV 22:34 → 3AH 23:03
PROVIDERS: ADMIT Internal Medicine; ATTEND Internal Medicine
DX: K59.00 Constipation, unspecified (principal); K56.7 Ileus, unspecified; D75.839 Thrombocytosis, unspecified; K31.89 Other diseases of stomach and duodenum; J45.909 Unspecified asthma, uncomplicated; D64.9 Anemia, unspecified; K56.609 Unspecified intestinal obstruction, unspecified as to partial versus complete obstruction; F32.A Depression, unspecified; R11.0 Nausea; Z79.899 Other long term (current) drug therapy; Z98.890 Other specified postprocedural states
CPT/HCPCS: 96361 ×4; 96375 ×2; 99285; 80076; 80048; 84703; 83690; 85025 ×2; 82270; 81001; 36415 ×3; 74177 ×2; 96376; 96365; 96366; 83540; 83550; 83735 ×2; 80053 ×2; 85027 ×2; J2270; J7030 ×2; J2405 ×2; J1885; Q9967 ×2; J1171; G0378 ×18; J3475; J3490 ×2

== ENCOUNTER 2024-12-07 08:48 | Emergency (ER) | payer BC ==
[~2024-12-07] VITALS: Ht 162.6 cm; Wt 57.2 kg
[~2024-12-07 08:48] MED LIST: FERR-63 PO
[2024-12-07 09:43] LABS: IMMATURE GRANULOCYTE ABSOLUTE 0.02 K/uL (0-1); NUCLEATED RED BLOOD CELLS 0.0 % (0.0-0.19); PLATELET COUNT (AUTO) 234 K/uL (130-400); RED BLOOD CELL COUNT(AUTO) 4.52 MIL/uL (4.00-5.50); RED CELL DISTRIBUTION WIDTH 12.1 % (11.0-15.5); WHITE BLOOD COUNT (AUTO) 5.2 K/uL (4.8-10.8)
[2024-12-07 09:59] LABS: ASPARTATE AMINOTRANSFERASE 12.0 U/L (10-37); CREATININE 0.5 mg/dL (0.5-1.0); GLOMERULAR FILTR. RATE CALC 136.0 mL/min (>90); GLUCOSE,RANDOM 86.0 mg/dL (70-105); SODIUM SERUM 136.0 mmol/L (136-145); TOTAL PROTEIN, SERUM 6.9 g/dL (6.0-8.3); UREA NITROGEN, BLOOD 6.0 mg/dL (7-18)
[2024-12-07 10:09] LABS: APPEARANCE,URINE CLOUDY (CLEAR); GLUCOSE, URINE (UA) NEGATIVE (NEGATIVE); LEUKOCYTE ESTERASE ,URINE NEGATIVE Leu/uL (NEGATIVE); NITRATE,URINE NEGATIVE (NEGATIVE); OCCULT BLOOD,URINE NEGATIVE (NEGATIVE)
[2024-12-07 10:11] LABS: ADD UA MICROSCOPIC YES
[2024-12-07 10:12] LABS: SQUAMOUS EPITHELIAL CELL,UR MANY /HPF (0-2)
[2024-12-07 10:13] VITALS: TEMP 98.6
[2024-12-07 10:13] LABS: HCG,QUALITATIVE URINE NEGATIVE (NEGATIVE)
--- NOTE | 2024-12-07 11:43 | HMCIMG ---
CT ABD/PEL WO CON RENAL/APPY REASON: RLQ pain COMPARISON: None. TECHNIQUE: CT of the abdomen and pelvis without intravenous contrast.. The images were then reviewed by a radiologist on an independent work station. Images were viewed in bone, soft tissue and lung windows. Additionally, sagittal and coronal reconstructions were performed. CT was performed with one or more of the following dose and reduction techniques: automated exposure control, adjustment of the mA or kV according to patient size or use of iterative reconstruction technique. FINDINGS: Lung Bases: Clear. Solid Organs: The spleen, pancreas and adrenal glands are unremarkable. The liver is unremarkable. The kidneys are unremarkable. Biliary System: The gallbladder is normal. The intrahepatic and extrahepatic biliary tree is otherwise unremarkable. Bowel: The appendix is visualized and appears to be normal. No mass, obstruction or inflammation. The right lower quadrant demonstrate no mass or fluid collection. Aorta and its major branches: Normal in caliber. Normal in appearance. Pelvic Organs: There is a left adnexal cyst measuring 4.2 x 2.2 cm. Bones: No suspicious osseous lesions. Lymph nodes: No lymphadenopathy. No free air. No free fluid. IMPRESSION: No acute intraabdominal pathology. Left adnexal cyst measuring 4.2 x 2.2 cm.
[2024-12-07] MEDS ORDERED: POLY17PO4 PO (11:58)
--- NOTE | 2024-12-07 11:58 | ERN ---
ED Note History of Present Illness Stated Complaint: RLQ PAIN Chief Complaint: Abdominal Pain Time Seen by MD: 09:15 Dictation: 22-year-old female presenting to the emergency department with mid abdominal pain now radiating to the right lower quadrant nausea no vomiting. No fever. Allergies: Coded Allergies: Penicillins (Unverified Allergy, Unknown, 12/16/23) Home Meds Active Scripts Ferrous Sulfate (Feosol) 325 Mg (65 Mg Iron) Tablet, 1 TAB PO DAILY for 30 Days, #30 TAB 1 Refill Prov:SHARAD LAND MD 12/17/23 Past Medical History Past Medical History: Anemia, Depression Surgical History: None : 0 Review of System Dictation Constitutional: Negative for fever,chills, and weight loss Eyes: Negative for injury, pain,redness, and discharge ENT: Negative for injury,pain or swelling Cardiovascular: Negative for chest pain, palpitations, and edema Respiratory: Negative for shortness of breath, cough, and wheezing, Abdomen/GI: Per HPI : Negative for injury, bleeding and discharge MS/Extremity: Negative for injury and deformity Skin: Negative for rash, and discoloration Neuro: Negative for headache, weakness, numbness, tingling, and seizure Psych: Negative for suicide ideation, homicidal ideation, and hallucinations Initial Vital Sign VS Vital Signs Date Time Temp Pulse Resp B/P (MAP) Pulse Ox O2 Delivery O2 Flow Rate FiO2 12/07/24 08:51 97.9 91 18 102/68 98 Room Air 12/07/24 10:13 0 21 Physical Exam Dictation General: awake, alert, NAD Head/Face: Normocephalic, atraumatic Eyes: PERRL, EOMI, vision at baseline ENT: oral cavity clear, TMs clear, no signs of infection Neck: Trachea midline, supple, no nuchal rigidity Cardiovascular: RRR, normal S1/S2, No MRGs, no JVD Respiratory: CTAB, no respiratory distress, No rales or wheezes Abdomen: Soft, right lower quadrant tenderness to palpation, non-distended, normal bowel sounds, no guarding or rebound. Skin: Warm, dry, normal turgor, no rash MS/Extremity: Pulses equal, no cyanosis, neurovascular intact, FROM Neuro: COAx4, GCS 15, strength 5/5, CN 2-12 intact, normal cerebellar exam, normal gait, Psych: Normal behavior, mood, and affect normal Results (Laboratory/Radiology) Laboratory/Radiology Laboratory Tests Test 12/07/24 09:32 12/07/24 09:51 White Blood Count 5.2 K/uL (4.8-10.8) Red Blood Count 4.52 MIL/uL (4.00-5.50) Hemoglobin 13.1 g/dL (12.0-16.0) Hematocrit 38.3 % (36-48) Mean Corpuscular Volume 84.7 fL (79-99) Mean Corpuscular Hemoglobin 29.0 pg (27.0-33.0) Mean Corpuscular Hemoglobin Concent 34.2 g/dL (32.0-36.0) Red Cell Distribution Width 12.1 % (11.0-15.5) Platelet Count 234 K/uL (130-400) Mean Platelet Volume 9.4 fL (7.5-10.5) Immature Granulocyte % (Auto) 0.4 % (0-1) Neutrophils (%) (Auto) 61.2 % (40.0-77.0) Lymphocytes (%) (Auto) 31.0 % (21.0-51.0) Monocytes (%) (Auto) 6.0 % (3.0-13.0) Eosinophils (%) (Auto) 1.0 % (0.0-8.0) Basophils (%) (Auto) 0.4 % (0.0-5.0) Neutrophils # (Auto) 3.2 K/uL (1.8-7.7) Lymphocytes # (Auto) 1.6 K/uL (1.0-4.8) Monocytes # (Auto) 0.3 K/uL (0.1-1.0) Eosinophils # (Auto) 0.05 K/uL (0.00-0.70) Basophils # (Auto) 0.02 K/uL (0.00-0.20) Absolute Immature Granulocyte (auto 0.02 K/uL (0-1) Nucleated Red Blood Cells 0.0 % (0.0-0.19) Sodium Level 136 mmol/L (136-145) Potassium Level 4.1 mmol/L (3.5-5.1) Chloride Level 104 mmol/L (101-111) Carbon Dioxide Level 26 mmol/L (21-32) Blood Urea Nitrogen 6 mg/dL (7-18) L Creatinine 0.5 mg/dL (0.5-1.0) Glomerular Filtration Rate Calc 136 mL/min (>90) Random Glucose 86 mg/dL (70-105) Total Calcium 8.5 mg/dL (8.5-10.1) Total Bilirubin 0.7 mg/dL (0.2-1.0) Direct Bilirubin 0.2 mg/dL (0.0-0.3) Aspartate Amino Transf (AST/SGOT) 12 U/L (10-37) Alanine Aminotransferase (ALT/SGPT) 15 U/L (12-78) Alkaline Phosphatase 58 U/L (50-136) Total Protein 6.9 g/dL (6.0-8.3) Albumin 3.8 g/dL (3.5-5.0) Lipase 29 U/L (16-77) Urine Color YELLOW (YELLOW) Urine Appearance CLOUDY (CLEAR) H Urine pH 6.0 (5.0-8.0) Urine Specific [place] 1.017 (1.001-1.031) Urine Protein NEGATIVE mg/dL (NEGATIVE) Urine Glucose (UA) NEGATIVE mg/dL (NEGATIVE) Urine Ketones NEGATIVE mg/dL (NEGATIVE) Urine Occult Blood NEGATIVE (NEGATIVE) Urine Nitrate NEGATIVE (NEGATIVE) Urine Bilirubin NEGATIVE mg/dL (NEGATIVE) Urine Urobilinogen 0.2 mg/dL (0.2-1.0) Urine Leukocyte Esterase NEGATIVE [place]/uL Urine RBC None /HPF (0-1) Urine WBC 0-1 /HPF (0-1) Urine Squamous Epithelial Cells MANY /HPF (0-2) Urine Bacteria RARE /HPF (None Seen) Urine HCG, Qualitative NEGATIVE (NEGATIVE) Labs Reviewed?: Yes ED Course ED Course Orders Procedure Category Date Status Time Basic Metabolic Panel LAB 12/07/24 Complete 09:16 Cbc With Differential LAB 12/07/24 Complete 09:16 Hepatic Function Panel LAB 12/07/24 Complete 09:16 Lipase LAB 12/07/24 Complete 09:16 Urinalysis Profile LAB 12/07/24 Complete 09:16 ,Urine Test LAB 12/07/24 Complete 09:16 Ct Abd/Pel Wo Con CT 12/07/24 Resulted Renal/Appy 10:17 Vital Signs Date Time Temp Pulse Resp B/P (MAP) Pulse Ox O2 Delivery O2 Flow Rate FiO2 12/07/24 10:13 98.6 78 18 107/63 99 Room Air* 0 21 12/07/24 08:51 97.9 91 18 102/68 98 Room Air Medical Decision Making MDM MDM: Differential diagnosis: Rationale: Tests considered and ordered secondary to shared decision making include: Previous outside records reviewed: Old ER visits. Risk of complication and/or morbidity or mortality of patient management: None Medications-Per medication reconciliation Need for hospitalization: Patient does not meet criteria for hospitalization. Need for emergency major/minor surgery: No There are no social concerns with this patient. Prescription drug management Prescriptions will include symptomatic care Patient's prior external medical records from other ER visits were reviewed by me as indicated. Prior testing and results from previous visits were reviewed. Prior tests were taken into account with medical decision making and resource utilization, independent historian/historians were used to obtain complete medical history. I independently interpreted the test that were performed, results were reviewed by me and considered findings on radiology if ordered. Medical management and examination interpretation discussions were had by me with other qualified healthcare professionals as indicated for the patient's care. 24-year-old female with right lower quadrant pain stable exam negative workup CT scan stable stable for discharge. DX & DISP Disposition: Discharge Departure Impression: Primary Impression: Acute abdominal pain Additional Impression: Acute constipation Condition: Stable Scripts Polyethylene Glycol 3350 (Miralax) 17 Gram Powd.pack 17 GM PO DAILY for constipation for 5 Days, #5 PACKET 0 Refills Prov: KAMILAH GUILLEN MD 12/07/24 Referrals: KIT CORRAL (PCP) KAMILAH GUILLEN MD Dec 07, 2024 11:58
[2024-12-07 12:05] VITALS: BP 96/52; PULSE 65; RESP 20; O2SAT 99
== END 2024-12-07 12:09 | disposition home or self-care (01) ==
LOC: EDH 08:48
DX: K59.09 Other constipation (principal); Z88.0 Allergy status to penicillin
CPT/HCPCS: 36415; 74176; 80048; 80076; 81001; 81025; 83690; 85025; 99284